=== PATIENT | male | born 2000 | race Caucasian/White ===

== ENCOUNTER 2018-06-10 23:39 | Emergency (ER) | payer BC ==
[2018-06-10 23:44] VITALS: TEMP 98.1
[2018-06-11 00:36] LABS: Basophils % (A) 1 %; Eosinophils # (A) 0.3 k/uL (0-0.7); Eosinophils % (A) 4 %; HGB 14.7 gm/dL (13.0-17.5); Lymphocytes # (A) 2.1 k/uL (1.0-4.8); Lymphocytes % (A) 34 %; MCH 29.7 pg (25.0-35.0); MCHC 34.2 g/dL (31.0-37.0); MCV 86.7 fL (80.0-100.0); Mean Platelet Volume 7.9; Monocytes # (A) 0.6 k/uL (0-1.0); Monocytes % (A) 10 %; Neutrophils % (A) 49 %; Platelet Count 135 k/uL (150-450); RBC 4.96 m/uL (4.30-5.90); RDW 12.9 % (11.5-15.5); WBC 6.1 k/uL (4.0-11.0)
[2018-06-11 00:45] LABS: ALT 53 U/L (21-72); AST 38 U/L (17-59); Albumin 4.7 g/dL (3.5-5.0); Alkaline Phosphatase 50 U/L (38-126); Anion Gap 8 mmol/L; Blood Urea Nitrogen 14 mg/dL (9-20); Calcium 9.7 mg/dL (8.4-10.2); Carbon Dioxide 28 mmol/L (22-30); Chloride 105 mmol/L (98-107); Glucose 107 mg/dL (74-99); Sodium 141 mmol/L (137-145); Total Bilirubin 0.5 mg/dL (0.2-1.3); Total Protein 7.8 g/dL (6.3-8.2)
--- NOTE | 2018-06-11 00:49 | ED ---
ENT HPI - General Source: patient, RN notes reviewed Mode of arrival: ambulatory Limitations: no limitations <Alejandro Yu - Last Filed: 06/11/18 01:17> <Jovanna Devine - Last Filed: 06/11/18 05:42> - General Chief complaint: ENT Stated complaint: Throat Pain Time Seen by Provider: 06/10/18 23:44 - History of Present Illness Initial comments: This is a 17-year-old male presents emergency Department chief complaint of right-sided neck lump. Patient states has been there for 4-5 weeks with no associated pain or URI symptoms. Patient denies current sore throat, difficulty swallowing, headache, dizziness, nausea, vomiting, nasal congestion, fever, chills. Patient has no history of mono. Patient states he has not had this evaluated for. He states he has slightly increased in size. Patient states that he has no fatigue no night sweats. Denies any recent weight gain weight loss. (Alejandor Yu) - Related Data Previous Rx's Medication Instructions Recorded Amoxicillin/Potassium Clav 1 tab PO Q12HR #20 tab 06/11/18 [Augmentin 875-125 Tablet] Allergies Allergy/AdvReac Type Severity Reaction Status Date / Time No Known Allergies Allergy Verified 06/10/18 23:55 Review of Systems ROS Other: All systems not noted in ROS Statement are negative. <Alejandro Yu - Last Filed: 06/11/18 01:17> ROS Other: All systems not noted in ROS Statement are negative. <Jovanna Devine - Last Filed: 06/11/18 05:42> ROS Statement: Those systems with pertinent positive or pertinent negative responses have been documented in the HPI. Past Medical History Past Medical History: No Reported History History of Any Multi-Drug Resistant Organisms: None Reported Past Surgical History: No Surgical Hx Reported Past Psychological History: No Psychological Hx Reported Smoking Status: Current every day smoker Past Alcohol Use History: None Reported Past Drug Use History: None Reported <Alejandro Yu - Last Filed: 06/11/18 01:17> General Exam Limitations: no limitations General appearance: alert, in no apparent distress Head exam: Present: atraumatic, normocephalic, normal inspection Eye exam: Present: normal appearance, PERRL, EOMI. Absent: scleral icterus, conjunctival injection, periorbital swelling ENT exam: Present: normal oropharynx, mucous membranes moist, TM's normal bilaterally, normal external ear exam Neck exam: Present: normal inspection, full ROM, lymphadenopathy (Right anterior cervical lymphadenopathy 1 cm centimeter). Absent: tenderness, meningismus Respiratory exam: Present: normal lung sounds bilaterally. Absent: respiratory distress, wheezes, rales, rhonchi, stridor Cardiovascular Exam: Present: regular rate, normal rhythm, normal heart sounds. Absent: systolic murmur, diastolic murmur, rubs, gallop, clicks Neurological exam: Present: alert, oriented X3, CN II-XII intact Skin exam: Present: warm, dry, intact, normal color. Absent: rash <Alejandro Yu - Last Filed: 06/11/18 01:17> Course <Alejandro Yu - Last Filed: 06/11/18 01:17> <Jovanna Devine - Last Filed: 06/11/18 05:42> Vital Signs 06/10/18 06/11/18 23:42 01:00 Temperature 98.1 F Pulse Rate 93 78 Respiratory 18 16 Rate Blood Pressure 160/100 147/98 O2 Sat by Pulse 98 98 Oximetry - Reevaluation(s) Reevaluation #1: 06/11/18 00:48 Initial blood pressure revealed hypertension this will be repeated and if persistent elevation will be referred to pcp (Alejandro Yu) Medical Decision Making - Lab Data Result diagrams: 06/11/18 00:25 06/11/18 00:25 <Alejandro Yu - Last Filed: 06/11/18 01:17> - Lab Data Result diagrams: 06/11/18 00:25 06/11/18 00:25 <Jovanna Devine - Last Filed: 06/11/18 05:42> - Medical Decision Making 17-year-old male present emergency Department for swelling to the right side of his neck. Patient had ultrasound, lab work. Ultrasound reveals a 4 cm lymph node on the right with bilateral lymphadenopathy. Patient had negative heterophile no obvious signs of infection this has been persistent for 5 weeks. I did explain the patient this is concerning for possible non-Hodgkin's lymphoma. Patient will be provided ENT, oncology and he'll follow-up with his PCP. Patient understands that this is a concerning lymph node. Patient will be given a course of antibiotics. Return parameters were discussed. (Alejandro Yu) I was available for consultation in the emergency department. The history and physical exam were done by the midlevel provider. I was consulted for this patient's care. I reviewed the case with the midlevel provider and based on their presentation of the patient, I agree with the assessment, medical decision making and plan of care as documented. (Jovanna Devine) - Lab Data Lab Results 06/11/18 06/11/18 06/11/18 Range/Units 00:25 00:25 00:25 WBC 6.1 (4.0-11.0) k/uL RBC 4.96 (4.30-5.90) m/uL Hgb 14.7 (13.0-17.5) gm/dL Hct 43.0 (39.0-53.0) % MCV 86.7 (80.0-100.0) fL MCH 29.7 (25.0-35.0) pg MCHC 34.2 (31.0-37.0) g/dL RDW 12.9 (11.5-15.5) % Plt Count 135 L (150-450) k/uL Neutrophils % 49 % Lymphocytes % 34 % Monocytes % 10 % Eosinophils % 4 % Basophils % 1 % Neutrophils # 3.0 (1.3-7.7) k/uL Lymphocytes # 2.1 (1.0-4.8) k/uL Monocytes # 0.6 (0-1.0) k/uL Eosinophils # 0.3 (0-0.7) k/uL Basophils # 0.0 (0-0.2) k/uL Sodium 141 (137-145) mmol/L Potassium 4.0 (3.5-5.1) mmol/L Chloride 105 (98-107) mmol/L Carbon Dioxide 28 (22-30) mmol/L Anion Gap 8 mmol/L BUN 14 (9-20) mg/dL Creatinine 0.95 (0.66-1.25) mg/dL Est GFR (CKD-EPI)AfAm >90 (>60 ml/min/1.73 sqM) Est GFR (CKD-EPI)NonAf >90 (>60 ml/min/1.73 sqM) Glucose 107 H (74-99) mg/dL Calcium 9.7 (8.4-10.2) mg/dL Total Bilirubin 0.5 (0.2-1.3) mg/dL AST 38 (17-59) U/L ALT 53 (21-72) U/L Alkaline Phosphatase 50 (38-126) U/L Total Protein 7.8 (6.3-8.2) g/dL Albumin 4.7 (3.5-5.0) g/dL Heterophile Antibody Negative (Negative) Disposition Is patient prescribed a controlled substance at d/c from ED?: No Time of Disposition: 01:20 <Alejandro Yu - Last Filed: 06/11/18 01:17> <Jovanna Devine - Last Filed: 06/11/18 05:42> Clinical Impression: Anterior cervical lymphadenopathy Disposition: HOME SELF-CARE Condition: Stable Instructions: Lymphadenopathy (ED) Additional Instructions: Please return to the Emergency Department if symptoms worsen or any other concerns. Please follow-up with her PCP, ENT and oncology. Prescriptions: Amoxicillin/Potassium Clav [Augmentin 875-125 Tablet] 1 tab PO Q12HR #20 tab Referrals: Abdias Baez MD [Primary Care Provider] - 1-2 days Lawrence Coffman MD [STAFF PHYSICIAN] - 1-2 days Daryl Rao MD [STAFF PHYSICIAN] - 1-2 days
--- NOTE | 2018-06-11 00:52 | US ---
EXAMINATION TYPE: US thyroid st tissue head/neck DATE OF EXAM: 06/11/2018 COMPARISON: NONE CLINICAL HISTORY: Right sided neck lump. Lump right neck for 4-5 weeks Multiple lymph nodes bilateral neck. Largest = 3.9 x 1.0 x 2.7cm right neck at area of lump IMPRESSION: There is bilateral cervical lymphadenopathy. There is a dominant node on the right side that measures almost 4 cm in length.
[2018-06-11 01:03] VITALS: BP 147/98; PULSE 78; RESP 16
== END 2018-06-11 01:23 | disposition home or self-care (01) ==
LOC: EC 23:39
DX: R59.0 Localized enlarged lymph nodes (principal); R07.0 Pain in throat; F17.200 Nicotine dependence, unspecified, uncomplicated
CPT/HCPCS: 36415; 76536; 80053; 85025; 86308; 99283